=== PATIENT | female | born 1975 | race Caucasian/White ===

== ENCOUNTER 2022-02-26 09:36 | Emergency (ER) | payer BC, SELFPAY ==
[2022-02-26 09:42] VITALS: BP 113/79; PULSE 81; RESP 14; TEMP 37; O2SAT 100
--- NOTE | 2022-02-26 10:36 | ED.GENADULT ---
HPI - General Adult General Chief complaint: Ear Stated complaint: Ear pain Time Seen by Provider: 02/26/22 09:40 Source: patient Mode of arrival: ambulatory Limitations: no limitations History of Present Illness HPI narrative: Patient presents for evaluation of dizziness, nausea, vomiting for the past 2 days. She has a history of recurrent otitis media and states current symptoms are consistent with those previously experienced with otitis media in the past. Denies any otalgia, hearing loss, drainage from the ear. No fever, chills, nausea, vomiting, diarrhea, cough, shortness of breath, headache. No recent sick contacts to her knowledge. She does not smoke. She states meclizine has been helpful in the past. Related Data Home Medications Medication Instructions Recorded Confirmed Synthroid 02/26/22 Allergies Allergy/AdvReac Type Severity Reaction Status Date / Time codeine Allergy Itching Verified 02/26/22 09:58 Review of Systems Review of Systems: CONSTITUTIONAL: Denies fever, chills, or sweats. EYES: Denies visual changes, redness, or discharge. ENT: Denies rhinorrhea, congestion, sore throat, or otalgia. CARDIOVASCULAR: Denies chest pain, palpitations, or edema. RESPIRATORY: Denies cough or dyspnea. GASTROINTESTINAL: Reports nausea and vomiting. Denies abdominal pain or diarrhea. GENITOURINARY: Denies dysuria or hematuria. SKIN: Denies rash or itching. MUSCULOSKELETAL: Denies back pain, joint pain, or myalgia. NEUROLOGIC: Reports dizziness. Denies headache, numbness, or weakness. PSYCHIATRIC: Denies anxiety or depression. [facility] Past Medical History Medical History No pertinent past medical history Surgical History Surgical History No pertinent past surgical history Family History Family History Mother Family history non-contributory Social History Social History Smoking status: Never smoker Substance use: never Gender identity (if verbalized by the patient): Female Sexual Orientation (if Verbalized by the Patient): Straight or Heterosexual Spiritual care concerns: No Exam Narrative: GENERAL: Well-appearing, well-nourished, and in no acute distress. HEAD: Normocephalic, atraumatic. EYES: PERRLA and EOMI. ENT: Nares clear, no rhinorrhea or epistaxis. Mucous membranes moist. Oropharynx without tonsillar hypertrophy exudate or other lesions. Right tympanic membrane erythema with thick yellow drainage behind right TM NECK: Supple. No adenopathy or masses. No carotid bruits or JVD CHEST: Clear to auscultation. No respiratory distress. No wheezes rales or rhonchi HEART: Regular rate and rhythm. No murmur heard. Normal peripheral pulses. ABDOMEN: Soft, nontender, nondistended, normal active bowel sounds. EXTREMITIES: Normal range of motion. No edema. SKIN: Warm, dry, no rash. NEURO: No focal deficits. Alert and oriented x3. PSYCH: Normal mood and affect. Course Course Emergency Course: This is a 46-year-old female with history of recurrent otitis media who presented for evaluation of dizziness, nausea and vomiting. Her exam is consistent with otitis media. Will treat with Augmentin. Meclizine has been helpful in the past. She was also provided with a script for meclizine. Follow-up outpatient for further evaluation treatment and go to the ER for worsening symptoms. Patient in agreement with plan of care. Level of Care: Express Care Visit Vital Signs Vital signs: Vital Signs Temperature 37.0 C 02/26/22 09:42 Pulse Rate 81 02/26/22 09:42 Respiratory Rate 14 02/26/22 09:42 Blood Pressure 113/79 02/26/22 09:42 Pulse Oximetry 100 02/26/22 09:42 Oxygen Delivery Room Air 02/26/22 09:42 Temperature 37.0 C 02/26/22
== END 2022-02-26 10:46 | disposition home or self-care (01) ==
PROVIDERS: Emergency Provider Nurse Practitioner; PCP Internal Medicine
DX: H66.91 Otitis media, unspecified, right ear (principal); R42 Dizziness and giddiness; R11.2 Nausea with vomiting, unspecified
CPT/HCPCS: 99213; G0463